=== PATIENT | female | born 1990 | race Caucasian/White ===

== ENCOUNTER 2018-06-13 09:18 | Emergency (ER) | payer OTHER ==
[~2018-06-13] VITALS: Ht 172.7 cm; Wt 114.8 kg
[2018-06-13 09:32] VITALS: BP 154/99; Ht 172.7 cm; Wt 114.8 kg
== END 2018-06-13 10:44 | disposition home or self-care (01) ==
LOC: ED 09:18
DX: S61.251D Open bite of left index finger without damage to nail, subsequent encounter (principal); W54.0XXA Bitten by dog, initial encounter; Y93.89 Activity, other specified; Y92.89 Other specified places as the place of occurrence of the external cause; Y99.8 Other external cause status
CPT/HCPCS: Q0092

== ENCOUNTER 2019-04-13 01:13 | Emergency (ER) | payer OTHER ==
[~2019-04-13] VITALS: Ht 172.7 cm; Wt 120.2 kg
[2019-04-13 01:16] VITALS: Ht 172.7 cm; Wt 120.2 kg
[2019-04-13 02:03] LABS: BASOPHIL % 0.5 % (0-2); PLATELET COUNT 289 x10^3mcL (130-400); RED CELL DISTRIBUTION WIDTH 12.7 % (11.5-14.5)
[2019-04-13 02:11] LABS: AMPHETAMINE QUAL UR NONE DETECTED (See below)
[2019-04-13 02:18] LABS: CALCIUM 8.4 mg/dL (8.5-10.1); CARBON DIOXIDE 29.2 mmol/L (21-32); CHLORIDE SERUM 104 mmol/L (98-107); CREATININE SERUM 0.7 mg/dL (0.6-1.0); GFR1 > 60 mL/min; GLUCOSE SERUM 139 mg/dL (74-106); POTASSIUM SERUM 3.8 mmol/L (3.5-5.1); SODIUM SERUM 143 mmol/L (136-145)
[2019-04-13 02:24] LABS: ALBUMIN 3.6 g/dL (3.4-5.0); ALKALINE PHOSPHATASE 102 U/L (46-116); ALT/SGPT 86 U/L (14-59); AST/SGOT 27 U/L (15-37); T4(THYROXINE) 7.9 ug/dL (4.7-13.3); TOTAL PROTEIN, SERUM 7.4 g/dL (6.4-8.2)
[2019-04-13 02:41] VITALS: BP 132/91
== END 2019-04-13 02:41 | disposition home or self-care (01) ==
LOC: ED 01:13
PROVIDERS: Emergency Medicine
DX: R00.2 Palpitations (principal); I10 Essential (primary) hypertension; R06.02 Shortness of breath; R61 Generalized hyperhidrosis
CPT/HCPCS: 36415; Q0092

== ENCOUNTER 2020-06-09 10:58 | Emergency (ER) | payer OTHER ==
[~2020-06-09] VITALS: Ht 167.6 cm; Wt 117.9 kg
[2020-06-09 11:06] VITALS: Ht 167.6 cm; Wt 117.9 kg
[2020-06-09 12:06] LABS: BASOPHIL % 0.3 % (0-2); PLATELET COUNT 279 x10^3mcL (130-400)
[2020-06-09 12:07] LABS: RED CELL DISTRIBUTION WIDTH 15.1 % (11.5-14.5)
[2020-06-09 14:10] VITALS: BP 142/87
== END 2020-06-09 14:10 | disposition home or self-care (01) ==
LOC: ED 10:58
PROVIDERS: Emergency Medicine
DX: N93.8 Other specified abnormal uterine and vaginal bleeding (principal); D25.9 Leiomyoma of uterus, unspecified